=== PATIENT | female | born 1970 | race American Indian/Alaskan Native ===

== ENCOUNTER 2020-07-24 15:34 | Emergency (ER) | payer OTHER ==
[2020-07-24 16:52] VITALS: BP 189/114
[2020-07-24] MEDS ORDERED: ACETAMINOPHEN 500 MG TAB PO ONE (17:17)
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
[2020-07-24 18:42] LABS: Bacteria,Urine 2+ /HPF (Negative); Bilirubin,Urine NEG (Negative); Blood,Urine SM (Negative); Color,Urine Yellow (Yellow); Mucus,Urine 2+ /HPF
[2020-07-24 18:45] LABS: Protein,Urine >500 mg/dL (Negative)
[2020-07-24 19:03] LABS: HCG Qualitative,Urine Negative (Negative)
== END 2020-07-24 19:30 | disposition home or self-care (01) ==
LOC: ED 15:34
DX: S00.83XA Contusion of other part of head, initial encounter (principal); S40.022A Contusion of left upper arm, initial encounter; N39.0 Urinary tract infection, site not specified; I10 Essential (primary) hypertension; Z79.899 Other long term (current) drug therapy; Y04.2XXA Assault by strike against or bumped into by another person, initial encounter; Y93.89 Activity, other specified; Y92.89 Other specified places as the place of occurrence of the external cause; Y99.8 Other external cause status
CPT/HCPCS: 70450; 81001; 81025; 87086